=== PATIENT | male | born 1980 | race Caucasian/White ===

== ENCOUNTER 2016-11-26 08:42 | Emergency (ER) | payer BC ==
--- NOTE | 2016-11-26 08:51 | EDM.PDOC ---
ED HPI GENERAL MEDICAL PROBLEM - General Stated Complaint: STROKE Time Seen by Provider: 11/26/16 08:51 - History of Present Illness INITIAL COMMENTS - FREE TEXT/NARRATIVE: HISTORY AND PHYSICAL: History of present illness: Patient 36-year-old white male who presents with a expressive aphasia and right hemiplegia he awoke with this he went sleep last night after drinking there is no associated trauma or other complaints and awoke with this inability to use his right side and inability to speak paramedics have documented a blood sugar in the 70s and states he was following commands consistently but had a dense right-sided paralysis and profound expressive aphasia he is nonverbal. Upon arrival here he did follow commands was able to squeeze my hand on command with his left side remains nonverbal roommate found patient on floor next to his bed this morning at 8:30 AM and call paramedics aeromedical was activated for emergent transport discussed case with Dr. Hill at [facility] graciously accept the patient patient will be transferred immediately as aeromedical available without delay Review of systems: As per history of present illness and below otherwise all systems reviewed and negative. Past medical history: As per history of present illness and as reviewed below otherwise noncontributory. Surgical history: As per history of present illness and as reviewed below otherwise noncontributory. Social history: No reported history of drug or alcohol abuse. Family history: As per history of present illness and as reviewed below otherwise noncontributory. Physical exam: HEENT: Atraumatic, normocephalic, pupils reactive, negative for conjunctival pallor or scleral icterus, mucous membranes moist, throat clear, neck supple, nontender, trachea midline. Lungs: Clear to auscultation, breath sounds equal bilaterally, chest nontender. Heart: S1S2, regular, negative for clicks, rubs, or JVD. Abdomen: Soft, nondistended, nontender. Negative for masses or hepatosplenomegaly. Negative for costovertebral tenderness. Pelvis: Stable nontender. Genitourinary: Deferred. Rectal: Deferred. Extremities: Atraumatic, negative for cords or calf pain. Neurovascular unremarkable. Neuro: Awake, alert, follows command dense right-sided paralysis noted expressive aphasia and nonverbal stroke score per nursing Diagnostics: CBC CMP troponin PT/INR chest x-ray EKG CT brain Therapeutics: IV O2 monitor Impression: #1 expressive aphasia with right-sided prasanth-plegia #2 acute CVA Definitive disposition and diagnosis as appropriate pending reevaluation and review of above. - Related Data Allergies Allergy/AdvReac Type Severity Reaction Status Date / Time No Known Allergies Allergy Verified 11/26/16 08:49 Home Meds: Home Meds . [No Known Home Meds] 11/26/16 [History] ED ROS GENERAL - Review of Systems Review Of Systems: ROS reveals no pertinent complaints other than HPI. ED EXAM, GENERAL - Physical Exam Exam: See Below (See dictation) Departure - Departure Time of Disposition: 08:51 Disposition: DC/Tfer to Acute Hospital 02 Condition: Critical Clinical Impression: CVA (cerebral vascular accident) - Discharge Information
[2016-11-26] MEDS ORDERED: Sodium Chloride 0.9% 2.5 ML Syringe FLUSH PRN (09:01)
[2016-11-26] MEDS ORDERED: Sodium Chloride 0.9% 1,000 ML IV ONE (09:01)
[2016-11-26] MEDS ORDERED: Sodium Chloride 0.9% 10 ML Syringe FLUSH PRN (09:01)
[2016-11-26 09:13] VITALS: BP 142/87
[2016-11-26 09:13] LABS: CHLORIDE,CL 107 mmol/L (98-110); SODIUM,NA 142 mmol/L (136-146)
--- NOTE | 2016-11-28 11:15 | CT ---
EXAM DATE: 11/26/16 PATIENT'S AGE: 36 Patient: KEISHA SWANSON Facility: [place], [place] Site . Site : 1980 Study: CT Head STROKE-11/26/2016 9:08:11 AM Ordering Physician: Brian Esquivel Final Report: History: Unable to speak or move right-sided body. Technique: Noncontrast head CT. Comparison: No prior. Findings: On the left, the MCA appears hyperdense on image #20 suspicious for occlusion of that vessel with intra-arterial thrombus. There is loss of lopez-white differentiation involving the left insular cortex suspicious for left MCA distribution infarct. Lopez-white differentiation on the right is maintained. There is no acute intracranial hemorrhage. No extra-axial collection or hematoma. No mass effect or midline shift. No hydrocephalus. Mastoid air cells are clear. Mild mucosal thickening involving several ethmoid air cells and the maxillary and right sphenoid sinus. No acute skull fracture. Impression: 1. Hyperdense left MCA sign likely indicating intra-arterial thrombus and vessel occlusion. 2. Loss of lopez-white differentiation involving the left insular cortex compatible with left MCA distribution infarct. - Findings were discussed with Dr. Torres on 11/26/2016 at 9:17 hours. Dictated by Florentin Mead MD @ 11/26/2016 9:19:26 AM Dictated by: Florentin Mead MD @ 11/26/2016 09:20:38 (Electronic Signature) Report Signed by Proxy. CHRISTIANO
--- NOTE | 2016-11-28 11:16 | CR ---
EXAM DATE: 11/26/16 PATIENT'S AGE: 36 Patient: KEISHA SWANSON Facility: [place], [place] Site . Site : 1980 Study: XRay Chest [id number]/15/2017 9:48:51 AM Ordering Physician: Brian Esquivel Final Report: HISTORY: Stroke. TECHNIQUE: One view of the chest. COMPARISON: No prior. FINDINGS: Low lung volumes. No lung consolidation. No pleural effusion or pneumothorax. Cardiac size appears prominent but is exaggerated by technique and low lung volumes. IMPRESSION: No focal infiltrate or pulmonary edema. Dictated by Florentin Mead MD @ 11/26/2016 9:56:01 AM Dictated by: Florentin Mead MD @ 11/26/2016 09:56:06 (Electronic Signature) Report Signed by Proxy. [facility]
== END 2016-11-26 09:30 ==
LOC: MW.ED 08:42
DX: I63.9 Cerebral infarction, unspecified (principal); G81.91 Hemiplegia, unspecified affecting right dominant side
CPT/HCPCS: 36415; 70450; 71010; 80053; 80305; 81001; 82962; 84443; 84484; 85025; 85610; 85730; 93005; 99285; G0480; J7040